=== PATIENT | female | born 1985 | race Caucasian/White ===

== ENCOUNTER → 2016-10-01 | Outpatient (CLI) | payer BC, OTHER ==
--- NOTE | 2016-10-01 10:12 | RADIOLOGY REPORT (SQ) ---
EXAM DESCRIPTION: MRI HEAD COMBO COMPLETED DATE/TIME: 10/01/2016 9:45 am REASON FOR STUDY: OTHER DISORDERS OF PITUITARY GLAND E23.6 OTHER DISORDERS OF PITUITARY GLAND COMPARISON: 09/26/2015 MRI brain TECHNIQUE: Multiplanar imaging includes non-contrasted T1, T2, FLAIR, diffusion with ADC map and pos t gadolinium contrast T1 sequences. Thin sections through the pituitary fossa pre and post contrast. Images stored on PACS. CONTRAST TYPE AND DOSE: 15 mL Multihance. RENAL FUNCTION: None required. The patient is less than 50 years old. LIMITATIONS: None. FINDINGS: PITUITARY FOSSA: The pituitary gland is overall stable in size, 9.5 x 12 x 12 mm in size . There is superior bulging of the pituitary gland without mass effect on the optic chiasm. Midline infundibulum. On the post contrasted images, there is a subtle area of decreased enhancement in the anterior half o f the gland measuring 6 x 7 mm in size. This is best shown on sagittal postcontrast T1 image 6. Th is is worrisome for a microadenoma which has increased in size. Posterior pituitary bright spot, suprasellar cistern, cavernous sinuses unremarkable. CSF SPACES: Normal in size and contour. No hemorrhage. CEREBRUM: Sulci and gyri normal in size and contour. Normal white matter signal on FLAIR imaging. No evidence of hemorrhage, mass, or extraaxial fluid collection. No abnormal enhancement post contrast. POSTERIOR FOSSA: No signal alteration. No hemorrhage. No edema, masses, or mass effect. Internal aud itory canals, cerebello-pontine angles, mastoids normal. No enhancing lesions. ORBITS: No masses. Globes normal. PARANASAL SINUSES: No fluid levels. Mucosa normal. OTHER: No other significant finding. IMPRESSION: Anterior lobe pituitary microadenoma. This appears larger than on 09/26/2015. TECHNICAL DOCUMENTATION: JOB ID: [id number] All Rights Reserved
== END ==
LOC: RAD 08:09
PROVIDERS: ATTEND Physician Assistant
DX: D35.2 Benign neoplasm of pituitary gland (principal)
CPT/HCPCS: 70553; A9577